=== PATIENT | male | born 2000 | race Hispanic/Latino ===

== ENCOUNTER → 2022-11-23 | Outpatient (CLI) | payer OTHER | LOC: EDUNIT# 11:45 → M LABSMTC 11:45 | PROVIDERS: ATTEND Anesthesiology | DX: Z01.818 Encounter for other preprocedural examination (principal); Z11.52 Encounter for screening for COVID-19 ==

== ENCOUNTER → 2022-12-19 | Outpatient (CLI) | payer OTHER | LOC: M LABSMTC 11:45 | PROVIDERS: ATTEND Anesthesiology | DX: Z01.812 Encounter for preprocedural laboratory examination (principal); Z20.822 Contact with and (suspected) exposure to COVID-19 ==

== ENCOUNTER 2022-12-24 10:44 | Day surgery (SDC) | payer OTHER ==
[~2022-12-24] VITALS: Ht 162.6 cm; Wt 83.6 kg
[~2022-12-24 10:44] MED LIST: NS 1,000 ML IV ONE
[2022-12-24] MEDS ORDERED: LIDOCAINE 2% 100MG/5ML SDV (FOR ANES.) As Ordered ONE (12:44)
[2022-12-24] MEDS ORDERED: propofoL 500 MG/50 ML VIAL As Ordered ONE (12:44)
[2022-12-24] MEDS ORDERED: fentaNYL 100 MCG/2 ML INJECTION As Ordered ONE (12:44)
[2022-12-24 13:40] VITALS: BP 134/97
== END 2022-12-24 13:43 | disposition home or self-care (01) ==
LOC: M OPP 10:44
PROVIDERS: ATTEND Surgery
DX: K64.0 First degree hemorrhoids (principal); K92.1 Melena; K22.89 Other specified disease of esophagus; K31.89 Other diseases of stomach and duodenum; F41.9 Anxiety disorder, unspecified; F17.200 Nicotine dependence, unspecified, uncomplicated
CPT/HCPCS: 43239; 45378; 88305; J3010

== ENCOUNTER 2023-10-14 12:00 | Emergency (ER) | payer OTHER ==
[~2023-10-14] VITALS: Ht 162.6 cm; Wt 81.8 kg
[2023-10-14] MEDS ORDERED: ACET-683 PO (16:54)
[2023-10-14] MEDS ORDERED: IBUPROFEN 800 MG TAB PO ONE (17:45)
[2023-10-14] MEDS ORDERED: ACETAMINOPHEN 500 MG TAB PO ONE (18:25)
[2023-10-14] MEDS ORDERED: NS 1,000 ML IV ONE (18:30)
[2023-10-14 18:53] LABS: BASO % 0.4 % (0.0-1.0); EOS % 0.1 % (0.0-3.0); HEMATOCRIT 41.4 % (42.0-52.0); HEMOGLOBIN 14.1 g/dl (13.5-17.5); LYMPH # 1.6 10^3/uL (1.5-5.0); MEAN CORPUSCULAR HEMOGLOBIN 29.7 pg (27.0-33.0); MEAN CORPUSCULAR HGB CONC 34.1 g/dl (32.0-36.5); MEAN CORPUSCULAR VOLUME 87.2 fl (80.0-96.0); MONO # 1.1 10^3/uL (0.0-0.8); MONO % 12.8 % (2.0-8.0); NEUTROPHILS # 5.4 10^3/uL (1.5-8.5); NEUTROPHILS % 66.2 % (36.0-66.0); PLATELET COUNT, AUTOMATED 189 10^3/uL (150-450); RED BLOOD COUNT 4.75 10^6/uL (4.30-6.10); WHITE BLOOD COUNT 8.2 10^3/uL (4.0-10.0)
[2023-10-14] MEDS ORDERED: ISOVUE-370 76% 100ML VIAL As Ordered ONE (19:06)
[2023-10-14] MEDS ORDERED: AUGMENTIN 875 MG TAB PO STA (20:52)
[2023-10-14] MEDS ORDERED: AMOX875T2 PO (20:55)
[2023-10-15 01:19] VITALS: BP 139/82; TEMP 97.9; O2SAT 99
== END 2023-10-15 01:22 | disposition home or self-care (01) ==
LOC: M ED 12:00
DX: J02.0 Streptococcal pharyngitis (principal); F17.290 Nicotine dependence, other tobacco product, uncomplicated
CPT/HCPCS: 70491; 80047; 83605; 85025; 87040; 87486; 87581; 87633; 87798; 87880; 96374; 99284; Q9967

== ENCOUNTER → 2024-04-13 | Outpatient (REF) ==
[~2024-04-13] MED LIST changes: +ACET-683 PO; +AMOX875T2 PO; -NS 1,000 ML IV ONE
== END ==
LOC: M EMP 13:15
PROVIDERS: ATTEND Family Medicine
DX: Z01.89 Encounter for other specified special examinations (principal)

== ENCOUNTER → 2024-07-30 | Outpatient (CLI) | payer OTHER | LOC: M SLEEP 20:11 | PROVIDERS: ATTEND Internal Medicine | DX: G47.33 Obstructive sleep apnea (adult) (pediatric) (principal) ==